=== PATIENT | female | born 1960 | race African-American/Black ===

== ENCOUNTER 2020-03-11 06:05 | Inpatient (IN) | payer OTHER ==
[2020-03-08 16:03] VITALS: BMI 41.4
[~2020-03-11 06:05] MED LIST: CELECOXIB 200 MG CAPSULE PO ONE; PANTOPRAZOLE 40 MG TABLET PO ONE; TRANEXAMIC ACID 1000 MG/10 ML VIAL IVPUSH ONE
[2020-03-11] MEDS ORDERED: CELECOXIB 200 MG CAPSULE ONE (06:44)
[2020-03-11] MEDS ORDERED: MIDAZOLAM HCL 2 MG/2 ML SINGLE DOSE VIAL ONE ×2 (06:57→08:46)
[2020-03-11] MEDS ORDERED: BUPIVACAINE LIPOSOME/PF (EXPAREL) 266 MG/20 ML VIAL ONE (06:57)
[2020-03-11] MEDS ORDERED: SODIUM CHLORIDE 0.9% P/F 10 ML VIAL IJ ONE (06:57)
[2020-03-11] MEDS ORDERED: oxyCODONE HCL 10 MG SUSTAINED ACTING TABLET PO ONE (07:00)
[2020-03-11] MEDS ORDERED: GABAPENTIN 300 MG CAPSULE PO ONE (07:00)
[2020-03-11] MEDS ORDERED: VANCOMYCIN 1,000 MG VIAL (RESTRICTED TO ID ONLY) ONE (07:18)
[2020-03-11] MEDS ORDERED: TRANEXAMIC ACID 1000 MG/10 ML VIAL ONE (07:18)
[2020-03-11] MEDS ORDERED: ceFAZolin SODIUM 1 GM VIAL ONE ×3 (07:18→16:15)
[2020-03-11] MEDS ORDERED: DEXMEDETOMIDINE HCL 200 MCG/2 ML IVPB ONE (07:43)
--- NOTE | 2020-03-11 07:48 | HP ---
Admitting History and Physical - Admission Chief Complaint: Left knee osteoarthritis x years History of Present Illness: 59 year old female presents today in regard to their left knee. Longstanding history of left knee osteoarthritis. Patient complains of pain, limited ROM, difficulty ambulating and difficulty completing activities of daily living. Patient has failed conservative treatment options including PO medications, injections, exercise programs and activity modification. Diagnostic testing reveals severe osteoarthritis of the left knee joint. At this point, patient would like to proceed with surgical intervention; a left total knee arthroplasty, MAKOplasty. History Source: Patient - Past Medical History Cardiovascular: Yes: HTN Pulmonary: Yes: Pulmonary Embolus (in 2006, filter placed) Musculoskeletal: Yes: Osteoarthritis Additional Past Medical History: pulmonary embolism- 2006 was on A/C for one year and then had filter placed of unclear etilogy ? DVT bleeding from uterus Osteoarthritis leg cramps Anemia Hypertension - Past Surgical History Additional Past Surgical History: gastric bypass 2009 IVC filter in 2006 - Advance Directives Advance Directives: Yes: Health Care Proxy - Smoking History Smoking history: Never smoked Have you smoked in the past 12 months: No Home Medications - Allergies Allergies/Adverse Reactions: Allergies Allergy/AdvReac Type Severity Reaction Status Date / Time No Known Allergies Allergy Verified 03/08/20 15:48 - Home Medications Home Medications: Ambulatory Orders Amlodipine Besylate 10 mg PO DAILY 03/08/20 Diclofenac Sodium 75 mg PO BID 03/08/20 Ferrous Sulfate 325 mg PO DAILY 03/08/20 Review of Systems - Review of Systems Musculoskeletal: reports: Crepitus (left knee), Decreased ROM (left knee), Joint Pain (left knee), Joint Swelling (left knee) Physical Examination Vital Signs: Vital Signs Temperature 98.2 F 03/11/20 06:31 Pulse Rate 82 03/11/20 06:31 Respiratory Rate 18 03/11/20 06:31 Blood Pressure 141/72 03/11/20 06:31 O2 Sat by Pulse Oximetry (%) 100 03/11/20 06:31 Constitutional: Yes: Well Nourished, No Distress Eyes: Yes: Conjunctiva Clear HENT: Yes: Atraumatic Neck: Yes: Supple Cardiovascular: Yes: Regular Rate and Rhythm Respiratory: Yes: Regular, Tachypnea ...Rectal Exam: Yes: Deferred Musculoskeletal: Yes: Joint Stiffness (left knee), Joint Swelling (left knee) Assessment/Plan 59 year old female presents today in regard to their left knee. Longstanding history of left knee osteoarthritis. Patient complains of pain, limited ROM, difficulty ambulating and difficulty completing activities of daily living. Patient has failed conservative treatment options including PO medications, injections, exercise programs and activity modification. Diagnostic testing reveals severe osteoarthritis of the left knee joint. At this point, patient would like to proceed with surgical intervention; a left total knee arthroplasty, MAKOplasty. Pros, cons, risks, benefits & alternatives of a left total knee arthroplasty, MAKOplasty was discussed with the patient at length. Patient confirms their understanding and consents to proceed with a left total knee arthroplasty - MAKOplasty.
[2020-03-11] MEDS ORDERED: CEFAZOLIN 2 GM in DEXTROSE 5%-WATER - 50 ML IVPB ONE (08:00)
[2020-03-11] MEDS ORDERED: PROPOFOL 20 ML ONE ×6 (08:01→11:06)
[2020-03-11] MEDS ORDERED: ceFAZolin SODIUM 1 GM VIAL IVPB ONE ×2 (09:35→11:54)
[2020-03-11] MEDS ORDERED: TRANEXAMIC ACID 1000 MG/10 ML VIAL IVPB ONE ×2 (09:36→11:30)
[2020-03-11] MEDS ORDERED: VANCOMYCIN 1,000 MG VIAL (RESTRICTED TO ID ONLY) IVPB ONE ×2 (09:36→12:15)
[2020-03-11] MEDS ORDERED: DICLOFENAC SODIUM 75 MG TABLET.DR PO SCH (10:00)
[2020-03-11] MEDS ORDERED: BUPIVICAINE 0.25%/MORPH PF/KETOROLAC - 51ML DISP.SYRINGE IA ONE (10:00)
[2020-03-11] MEDS ORDERED: LACTATED RINGERS SOLUTION 1,000 ML IV SCH ×2 (13:00→13:30)
--- NOTE | 2020-03-11 13:09 | SURG ---
Surgery Manager Game Note Manager Game: Remy Li PA-C Date of Service: 03/11/20 Diagnosis: Left knee DJD/OA Procedure: Left total knee replacement I was present for the entirety of the operative procedure. For further detail, please refer to operative report. Visit type - Case Type Case Type: Scheduled - New patient This patient is new to me today: Yes Date on this admission: 03/11/20
[2020-03-11] MEDS ORDERED: KETOROLAC TROMETHAMINE 30 MG/1 ML VIAL ONE (13:12)
[2020-03-11] MEDS ORDERED: traMADol HCL 50 MG TABLET ONE (13:12)
[2020-03-11] MEDS ORDERED: ACETAMINOPHEN INJECTION 100 ML IVPB ONE (13:12)
--- NOTE | 2020-03-11 13:28 | OP ---
Operative Note - Note: Operative Date: 03/11/20 Pre-Operative Diagnosis: Left knee OA Operation: LEft AURELIANO TKA Post-Operative Diagnosis: Same as Pre-op Surgeon: Tomy Guzman Doughnut Batter Mixer: Remy Li Anesthesia: Spinal Estimated Blood Loss (mls): 200
[2020-03-11] MEDS ORDERED: ACETAMINOPHEN 1000 MG/100 ML VIAL (NON FORMULARY) IVPB ONE (13:29)
[2020-03-11] MEDS ORDERED: MAGNESIUM HYDROX 2400MG/30ML ORAL SUSPENSION 30 ML CUP PO PRN (13:30)
[2020-03-11] MEDS ORDERED: CEFAZOLIN 3 GM in DEXTROSE 5%-WATER 100 ML IVPB SCH (13:30)
[2020-03-11] MEDS ORDERED: KETOROLAC TROMETHAMINE 30 MG/1 ML VIAL IVPUSH SCH (13:30)
[2020-03-11] MEDS ORDERED: MAG HYDROX/AL HYDROX/SIMETH 30 ML UNIT-DOSE CUP PO PRN (13:30)
[2020-03-11] MEDS ORDERED: traMADol HCL 50 MG TABLET PO SCH (13:30)
[2020-03-11] MEDS: oxyCODONE HCL 5 MG TABLET PO PRN ×2 (15:50→18:40)
[2020-03-11] MEDS: ONDANSETRON 4 MG/2 ML VIAL IVPUSH PRN (16:09)
[2020-03-11] MEDS ORDERED: DEXTROSE 5%-WATER 100 ML IVPB ONE (16:15)
[2020-03-11] MEDS: CEFAZOLIN 3 GM in DEXTROSE 5%-WATER 100 ML IVPB SCH (17:35)
[2020-03-11] MEDS ORDERED: DEXAMETHASONE SOD PHOSPHATE 10 MG/1 ML VIAL IVPB ONE (20:00)
[2020-03-11] MEDS: traMADol HCL 50 MG TABLET PO SCH (20:30)
[2020-03-11] MEDS: KETOROLAC TROMETHAMINE 30 MG/1 ML VIAL IVPUSH SCH (20:30)
[2020-03-11] MEDS: CELECOXIB 200 MG CAPSULE PO SCH (21:13)
[2020-03-11] MEDS: ASCORBIC ACID 500 MG TABLET (FP) PO SCH (21:13)
[2020-03-11] MEDS: GABAPENTIN 300 MG CAPSULE PO SCH (21:13)
[2020-03-11] MEDS: oxyCODONE HCL 10 MG SUSTAINED ACTING TABLET PO SCH (21:14)
[2020-03-11] MEDS: SENNOSIDES/DOCUSATE COMBO (SENNA PLUS) TABLET (UD) PO SCH (21:15)
[2020-03-12] MEDS ORDERED: ceFAZolin SODIUM 1 GM VIAL ONE (00:24)
[2020-03-12] MEDS ORDERED: DEXTROSE 5%-WATER 100 ML IVPB ONE (00:24)
[2020-03-12] MEDS: CEFAZOLIN 3 GM in DEXTROSE 5%-WATER 100 ML IVPB SCH (00:36)
[2020-03-12] MEDS: KETOROLAC TROMETHAMINE 30 MG/1 ML VIAL IVPUSH SCH ×2 (01:14→08:55)
[2020-03-12] MEDS: traMADol HCL 50 MG TABLET PO SCH ×4 (01:14→21:15)
[2020-03-12] MEDS: oxyCODONE HCL 5 MG TABLET PO PRN ×2 (06:26→18:35)
[2020-03-12 08:21] LABS: HEMATOCRIT 30.1 % (32.4-45.2); HEMOGLOBIN 9.3 GM/dl (10.7-15.3); MCH 21.5 pg (25.7-33.7); MCHC 30.9 g/dl (32.0-36.0); MEAN CELL VOLUME 69.5 fl (80-96); MEAN PLT VOLUME 11.1 fl (7.5-11.1); PLATELET COUNT 241 K/MM3 (134-434); RBC 4.34 M/mm3 (3.60-5.2)
[2020-03-12 08:26] LABS: CALCIUM 9.2 mg/dl (8.5-10); CREATININE 0.6 mg/dl (0.55-1.3); POTASSIUM 4.2 mmol/L (3.5-5.1)
[2020-03-12] MEDS: PANTOPRAZOLE 40 MG TABLET PO SCH (09:08)
[2020-03-12] MEDS: oxyCODONE HCL 10 MG SUSTAINED ACTING TABLET PO SCH (09:08)
[2020-03-12] MEDS: APIXABAN 2.5 MG TABLET PO SCH ×2 (09:09→21:14)
[2020-03-12] MEDS: amLODIPine BESYLATE 10 MG TABLET (FP) PO SCH (09:10)
[2020-03-12] MEDS: ASCORBIC ACID 500 MG TABLET (FP) PO SCH ×2 (09:10→21:14)
[2020-03-12] MEDS: CELECOXIB 200 MG CAPSULE PO SCH ×2 (09:10→21:15)
[2020-03-12] MEDS: FERROUS SO4 325 MG TABLET (FP) PO SCH (09:10)
[2020-03-12] MEDS: SENNOSIDES/DOCUSATE COMBO (SENNA PLUS) TABLET (UD) PO SCH ×2 (09:11→21:15)
[2020-03-12] MEDS: GABAPENTIN 300 MG CAPSULE PO SCH ×2 (09:14→21:14)
[2020-03-12] MEDS: MULTIVITAMINS (DAILY MVI) TABLET (FP) PO SCH (09:14)
--- NOTE | 2020-03-12 12:26 | PN ---
Progress Note (short form) - Note Progress Note: Anesthesia postop note 59 y/o F s/p spinal anesthesia/ nerve blocks for TKR POD#1, vss, aaox3, pain fairly well controlled, ambulated earlier. No anesthesia complications.
[2020-03-12] MEDS: ONDANSETRON 4 MG/2 ML VIAL IVPUSH PRN (18:45)
--- NOTE | 2020-03-13 00:13 | PN ---
Progress Note (short form) - Note Progress Note: Pt seen and examined. Doing well. AVSS Selected Entries 03/12/20 22:00 Temperature 98.6 F Pulse Rate 89 Respiratory 18 Rate Blood Pressure 125/61 O2 Sat by Pulse 98 Oximetry (%) Laboratory Tests 03/12/20 03/12/20 07:37 07:37 WBC 9.0 Hgb 9.3 L Hct 30.1 L Plt Count 241 Sodium 138 Potassium 4.2 Chloride 102 Carbon Dioxide 26 Anion Gap 10 BUN 10.0 Creatinine 0.6 Est GFR (CKD-EPI)AfAm 117.27 Est GFR (CKD-EPI)NonAf 101.18 Random Glucose 140 H Calcium 9.2 Gen:NAD LLE: c/d/i, NVID A/P 59yo F s/p L AURELIANO TKA PT/OOB - WBAT RLE D/C home in AM
[2020-03-13] MEDS: oxyCODONE HCL 5 MG TABLET PO PRN ×2 (00:14→06:09)
--- NOTE | 2020-03-13 00:14 | DS ---
Physical Examination Vital Signs: Vital Signs Temperature 98.6 F 03/12/20 22:00 Pulse Rate 89 03/12/20 22:00 Respiratory Rate 18 03/12/20 22:00 Blood Pressure 125/61 03/12/20 22:00 O2 Sat by Pulse Oximetry (%) 98 03/12/20 22:00 Labs: CBC, BMP 03/12/20 07:37 03/12/20 07:37 Discharge Summary Problems reviewed: Yes Reason For Visit: OSTEOARTHRITIS LEFT KNEE Current Active Problems Osteoarthritis of left knee (Acute) Procedures: Principal: Joce BEDOYA TKA Hospital Course: Admitted for elective surgery. Procedure performed without complications. Pt received postoperative antibiotic prophylaxis and DVT ppx. Ambulated with physical therapy. Stable for discharge home with outpatient followup. Condition: Stable - Instructions Diet, Activity, Other Instructions: Dr. Guzman - Knee Replacement Instructions Keep the Aquacel dressing on until removed by Dr. Gumzan in 2 weeks - it is antibacterial and waterproof and you can shower with it on. Call the office for a follow-up appointment with Dr. Guzman in 2 weeks. [phone] Take ELIQUIS 2.5mg twice daily for 35 days postop to prevent blood clots in your legs. Take one Pantoprazole 40mg daily for 6 weeks to protect against heartburn and ulcers. Take Cephalexin (antibiotic) 3x/day for 10 days to help prevent skin infection. Take a multivitamin, stool softener, and extra Vitamin C supplement daily. For pain: *Mild pain (1-3/10): Take 1 Tramadol tablet every 4 hours as needed. Moderate pain (4-6/10): Take 1 Tramadol tablet and 1 Percocet tablet every 4 hours as needed. Severe pain (7-10/10): Take 1 Tramadol tablet and 2 Percocet tablets every 4 hours as needed. Activity: You can put as much weight on the operative leg as you want. Right after you get home, there will be a physical therapist coming to your house to help you walk around and bend/straighten your knee. After your follow-up appointment, you will be sent for more intensive outpatient physical therapy which will include machines and equipment that the home therapist cannot bring to your house. Always use a walker or cane for balance and to prevent falls. Expect to see swelling/bruising from the operative site all the way down to your toes. Wear the compression stocking on the operative side during the day to minimize how much swelling there is in your foot/ankle. Don't wear the stocking at night. You don't have to wear a stocking on the other side. Disposition: [facility]/HOME HEALTH CARE - Home Medications Comprehensive Discharge Medication List: Ambulatory Orders Amlodipine Besylate 10 mg PO DAILY 03/08/20 Ferrous Sulfate 325 mg PO DAILY 03/08/20 Apixaban [Eliquis -] 2.5 mg PO BID #70 tablet 03/11/20 Ascorbic Acid [Vitamin C -] 500 mg PO BID tablet 03/11/20 Cephalexin Monohydrate [Keflex -] 500 mg PO TID #30 capsule 03/11/20 Multivitamins [Multivit ([facility] Formulary)] 1 tab PO DAILY tab 03/11/20 Oxycodone HCl/Acetaminophen [Percocet 5-325 mg Tablet] 1 - 2 tab PO Q4H PRN #60 tablet MDD 10 03/11/20 Pantoprazole Sodium [Protonix -] 40 mg PO DAILY #40 tablet.ec 03/11/20 Sennosides/Docusate Sodium [Pericolace -] 2 tablet PO BID #0 tablet 03/11/20 traMADol HCL [Ultram -] 50 mg PO Q4H PRN #60 tablet MDD 6 03/11/20
[2020-03-13] MEDS: traMADol HCL 50 MG TABLET PO SCH ×2 (02:00→10:15)
[2020-03-13 05:33] VITALS: BP 131/63; PULSE 96; TEMP 98.5
[2020-03-13 08:39] LABS: HEMATOCRIT 26.8 % (32.4-45.2); HEMOGLOBIN 8.4 GM/dl (10.7-15.3); MCH 21.5 pg (25.7-33.7); MCHC 31.1 g/dl (32.0-36.0); MEAN PLT VOLUME 9.8 fl (7.5-11.1); PLATELET COUNT 198 K/MM3 (134-434); RBC 3.89 M/mm3 (3.60-5.2); RDW 22.1 % (11.6-15.6); WHITE BLOOD COUNT 7.2 K/mm3 (4.0-10.8)
[2020-03-13] MEDS: FERROUS SO4 325 MG TABLET (FP) PO SCH (10:14)
[2020-03-13] MEDS: amLODIPine BESYLATE 10 MG TABLET (FP) PO SCH (10:19)
[2020-03-13] MEDS: PANTOPRAZOLE 40 MG TABLET PO SCH (10:19)
[2020-03-13] MEDS: CELECOXIB 200 MG CAPSULE PO SCH (10:19)
[2020-03-13] MEDS: GABAPENTIN 300 MG CAPSULE PO SCH (10:19)
[2020-03-13] MEDS: SENNOSIDES/DOCUSATE COMBO (SENNA PLUS) TABLET (UD) PO SCH (10:19)
[2020-03-13] MEDS: APIXABAN 2.5 MG TABLET PO SCH (10:19)
[2020-03-13] MEDS: MULTIVITAMINS (DAILY MVI) TABLET (FP) PO SCH (10:19)
[2020-03-13] MEDS: ASCORBIC ACID 500 MG TABLET (FP) PO SCH (10:19)
--- NOTE | 2020-03-15 15:33 | PATH ---
Surgical Pathology Report Patient Name: NORMA ROMERO Med. Rec. #: [id number] /Age/Gender: 1960 (Age: 59) / F Account: [id number] Location: [facility] MED-SURG Taken: 03/11/2020 Received: 03/11/2020 Reported: 03/15/2020 Physicians: Tomy Guzman M.D. Specimen(s) Received LEFT KNEE BONES Clinical History Osteoarthritis left knee Final Diagnosis BONE, KNEE, LEFT, TOTAL KNEE REPLACEMENT MAKOPLASTY: BONE WITH DEGENERATIVE JOINT DISEASE, DENSE FIBROCONNECTIVE TISSUE, AND ADIPOSE TISSUE. Electronically Signed Lissy Nguyen M.D. Gross Description Received in formalin labeled "left knee bones," is a 13.0 x 10.5 x 1.8 cm aggregate of multiple faith-yellow, irregular portions of bone and soft tissue, consistent with knee bones. There are multiple areas of eburnation present, measuring up to 4.2 cm in greatest dimension. The articular surfaces are faith-yellow and focally granular. The underlying trabecular bone is yellow and hard. [employer] Manager sections are submitted in one cassette, following decalcification. /03/12/2020 saudi03/12/2020
--- NOTE | 2020-04-03 10:38 | SPEC ---
DATE OF OPERATION: 03/11/2020 PREOPERATIVE DIAGNOSIS: Left knee osteoarthritis. POSTOPERATIVE DIAGNOSIS: Left knee osteoarthritis. PROCEDURE: Left total knee replacement with AURELIANO plasty robotic navigation. ATTENDING SURGEON: Jemma Churchill MD DEMOGRAPHER: YANA Win ANESTHESIA: Spinal plus sedation. ESTIMATED BLOOD LOSS: 200 mL. COMPLICATIONS: None. DISPOSITION: The patient was transferred to the PACU in stable condition. IMPLANTS USED: Leatha Triathlon size 5 femoral component, Leatha Triathlon size 4 tibial component with 50-mm stem, 16-mm polyethylene component, 29-mm patellar component. INDICATIONS: This is a 59-year-old female who presented to the office complaining of bilateral knee pain. She was seen and evaluated by Dr. Churchill and diagnosed with severe bilateral knee osteoarthritis. The patient was initially treated nonoperatively with injections, medications, and physical therapy, but she continued to have severe pain and ambulatory dysfunction. She was therefore indicated for a total knee replacement. The left was more painful than the right, so we elected to proceed with the left side first. The risks, benefits, and alternatives of the procedure were explained to the patient, and she elected to proceed with the surgery. DESCRIPTION OF PROCEDURE: On the day of surgery, the patient was taken to the operating room and placed on the OR table. Spinal anesthesia was administered by the anesthesiologist. The patient was then positioned supine on the table and all bony prominences were padded. The knee was then prepped and draped in the usual sterile fashion and intravenous antibiotics were given for infection prophylaxis. A surgical time-out was then performed with the team, and the patients identity, procedure, side, availability of implants, and the administration of antibiotics was confirmed. With the knee flexed, a midline incision was made and carried down through the subcutaneous fat to the underlying retinaculum. A medial parapatellar arthrotomy was performed. This was followed by a subperiosteal dissection of the tissue off the proximal, medial tibia. A portion of fat pad was removed from under the patellar tendon, and a small portion of fat was excised off the distal supracondylar femur. Electrocautery and an [employer] bipolar sealing device were used to achieve hemostasis. The knee was then flexed further and the anterior horn of the lateral meniscus was released from the midline. Next, the anterior and posterior cruciate ligaments were transected. Grade 4 changes were noted diffusely throughout the knee. Femoral and tibial checkpoints were then placed in the appropriate location using a mallet. Two parallel bicortical self-drilling pins were placed in the tibial diaphysis after making stab incisions and bluntly dissecting down to bone. Two pins were then placed in the distal supracondylar femur. The [employer] navigation arrays were then attached to both the femoral and tibial pins and the lower extremity was then registered to the robotic navigation device using various joint movements, as well as inputting several dozen reference points. The knee was then taken through a full range of motion with a corrective force applied. Alignment in varus/valgus as well as flexion/extension and soft tissue balance was measured in various positions. The navigation device showed a numerical and graphic representation of the soft tissue balance. The components were repositioned virtually using the software until optimal soft tissue balance was achieved on screen. Once this was accomplished, the final plan was saved and sent to the robot. Self-retaining retractors were then placed at the joint line for exposure and protection of the collateral ligaments. The robot was brought into the sterile field and registered with the navigation device. The robotic arm with attached oscillating saw blade was then used to perform femoral and tibial bone cuts as per the saved software plan. The femoral box cut was made using the appropriately sized manual cutting guide. The knee was then irrigated. Trial components were placed and the knee was taken through a full range of motion to assess soft tissue balance and alignment. The range of motion was found to be excellent and the soft tissue balance was optimal and according to plan. The knee was then put into extension and the patella everted. The synovium around the patella was circumscribed with electrocautery. A caliper was used to measure the patellar thickness and a saw was then used to resect the patella at the chondro-osseous junction. The cut surface was then sized and drilled for the appropriate patellar button, with care taken to medialize it. A trial patella was then placed and the knee was again taken through a full range of motion. The knee was found to have both good balance and good patellar tracking. All of the components were removed except the tibial base plate. The appropriate instrumentation was used to drill and punch the proximal tibia for the keel of the final component. All bony surfaces were then cleaned with pulsatile lavage and dried. Bone cement was then prepared on the back table, and final components were cemented in place in the usual fashion. Extruded cement was removed. The polyethylene trial was placed, the knee was put into extension, and axial pressure was applied for compression while the cement hardened. The patellar button was similarly cemented into place. Once the cement had hardened, the knee was taken through a full range of motion to assess stability, balance, and patellar tracking. This was found to be optimal and the trial polyethylene was exchanged for the appropriately sized real implant. The wound was then thoroughly irrigated with normal saline. A 3-minute dilute Betadine lavage was performed. The knee was again irrigated using a pulsatile lavage device. A periarticular injection was used to locally infiltrate the capsular tissues surrounding the implant and prosthesis. Then No. 1 Polysorb and 0 VLoc 180 barbed sutures were used to close the arthrotomy. Then No. 1 Polysorb and 2-0 VLoc 90 sutures were used in the subcutaneous tissues. Then 4-0 undyed Vicryl and Dermabond skin adhesive was used to close the stab incisions made for the navigation pins. The skin was closed using both 3-0 VLoc 90 suture in a running subcuticular fashion and Dermabond skin adhesive. Once this was completed a sterile Aquacel dressing and compressive Rigoberto-wrap was applied. The patient was then awakened and taken to the PACU in stable condition. JEMMA CHURCHILL M.D. [id number]
== END 2020-03-13 11:27 | disposition home health service (06) | DRG 302 ==
LOC: FM/S 06:05
PROVIDERS: ADMIT Student in an Organized Health Care Education/Training Program; ATTEND Student in an Organized Health Care Education/Training Program
PROC: 8E0Y0CZ Robotic Assisted Procedure of Lower Extremity, Open Approach (ICD-10-PCS; 2020-03-11)
PROC: 0SRD0JZ Replacement of Left Knee Joint with Synthetic Substitute, Open Approach (ICD-10-PCS; principal; 2020-03-11 09:19)
DX: M17.12 Unilateral primary osteoarthritis, left knee (principal); I10 Essential (primary) hypertension; Z86.711 Personal history of pulmonary embolism; D64.9 Anemia, unspecified; Z98.84 Bariatric surgery status
CPT/HCPCS: 36415; 73560-TC-LT-FY; 80048; 85027; 88305-TC; 88311-TC; 94760; 97010-GP; 97116-GP; 97163-GP; J0131; J1100